=== PATIENT | female | born 1995 | race Caucasian/White ===

== ENCOUNTER 2017-01-21 08:50 | Outpatient (CLI) | payer BC ==
[2017-01-21 09:12] VITALS: BMI 41.9
[2017-01-21] MEDS ORDERED: IV START KIT ONE (09:29)
[2017-01-21] MEDS ORDERED: LACTATED RINGERS 1,000 ML ONE (09:29)
[2017-01-21] MEDS ORDERED: PENICILLIN G POTASSIUM 5 MMU in NS 0.9% (MINI-BAG PLUS) 100 ML IV ONE (09:34)
[2017-01-21] MEDS ORDERED: BETAMETHASONE ACET 6 MG/ML 5ML VIAL IM ONE (09:35)
[2017-01-21] MEDS: LACTATED RINGERS 1,000 ML IV SCH ×2 (09:40→10:48)
[2017-01-21] MEDS ORDERED: NS 0.9% (MINI-BAG PLUS) 100 ML IV ONE (09:46)
[2017-01-21] MEDS ORDERED: PENICILLIN G POTASSIUM 5 MMU VIAL ONE (09:46)
[2017-01-21] MEDS ORDERED: NIFEDIPINE 10 MG CAPSULE PO ONE (10:00)
--- NOTE | 2017-01-21 10:11 | PDOC36 ---
Provider Note Subject: PTL Note: S:Called at 0700 had been experiencing regular BHs q 10min, not particularly painful. Denied VB. An hour later, called back with more frequent q 8min and more painful. Arrived at [facility] with ctx q 8min, winces with ctx. O:VE: 3/100/-2, cephalic FHT: 145/moderate/accels present/decels absent A: at 33w4k by 8wk u/s PTL GBS unknown, membranes intact FHT: Cat. I BMI 40.7 P: Reviewed PTL status with [facility] and need for transfer. Requests [facility]. Questions answered. Report given to Dr. Dalton, receiving provider at [facility] GBS culture obtained IV placed, betamethasone, PCN gbs prophylaxis initiated, and nifedipine per Dr. Dalton Transfer to [facility]
[2017-01-22] MEDS ORDERED: LACTATED RINGERS 1,000 ML ONE (01:56)
[2017-01-22] MEDS ORDERED: IV START KIT ONE (01:56)
== END 2017-01-21 10:59 | disposition short-term general hospital (02) ==
LOC: FBCOUT 08:50 → FBC 08:50 → FBCOUT 10:59
PROVIDERS: ATTEND Advanced Practice Midwife
DX: O60.03 Preterm labor without delivery, third trimester (principal); Z3A.33 33 weeks gestation of pregnancy
CPT/HCPCS: 96372; 96361; 87081; 59025; J0702; A9270; J7120 ×2; J2540; G0463